=== PATIENT | male | born 1995 ===

== ENCOUNTER 2021-09-04 13:31 | Emergency (ER) | payer SELFPAY ==
[2021-09-04] MEDS: Ketorolac 30 MG/ML SDV IM ONE (14:11)
== END 2021-09-04 15:49 | disposition home or self-care (01) ==
LOC: LB.ED 13:31
DX: S62.141A Displaced fracture of body of hamate [unciform] bone, right wrist, initial encounter for closed fracture (principal); S62.314A Displaced fracture of base of fourth metacarpal bone, right hand, initial encounter for closed fracture; S62.316A Displaced fracture of base of fifth metacarpal bone, right hand, initial encounter for closed fracture; F17.210 Nicotine dependence, cigarettes, uncomplicated; W22.09XA Striking against other stationary object, initial encounter
CPT/HCPCS: 29125; 73130-RT; 73200-RT; 96372; 99283; 99284-25; J1885